=== PATIENT | male | born 1995 | race Asian ===

== ENCOUNTER 2025-04-02 10:16 | Outpatient (REF) | payer OTHER, SELFPAY ==
[2025-04-02 18:10] LABS: MANUAL DIFF FLAG NO
[2025-04-02 18:28] LABS: Hematocrit 49.9 % (42.0-52.0); Hemoglobin 16.5 g/dl (14.0-18.0); Imm Gran Abs Auto 0.03 X10*3/uL (0.00-0.03); Imm Gran Pct Auto 0.3 % (0.0-0.4); Lymphocytes Absolute Auto 4.3 X10*3/uL (1.2-4.9); Mean Corpuscular HGB Conc 33.1 g/dl (31.0-36.0); Mean Corpuscular Hemoglobin 27.9 pg (27.0-33.0); Mean Corpuscular Volume 84.3 fL (80.0-98.0); NRBC Abs Auto 0.000 X10*3/uL (0.0-0.012); NRBC Pct Auto 0.0 /100WBC (0.0-0.2); Platelet Count 354 X10*3/uL (160-400); Red Blood Count 5.92 X10*6/uL (4.60-5.80); White Blood Count 10.8 X10*3/uL (4.8-10.8)
[2025-04-02 18:46] LABS: Appearance Urine Clear; Glucose Urine UA Negative (Negative); PH 5.5 (5.0-9.0); Specific Gravity - Urine 1.025 (1.005-1.025); UMIC TRIGGER UACC YES
[2025-04-02 18:51] LABS: Alanine Aminotransferase 95 U/L (0-40); Albumin Level 4.9 g/dL (3.5-5.0); Alkaline Phosphatase 89 U/L (39-117); Anion Gap 12 (12-20); Aspartate Amino Transferase 45 U/L (5-37); Blood Urea Nitrogen 13 mg/dL (9-16); Calcium 9.5 mg/dL (8.4-10.2); Carbon Dioxide 28 mmol/L (22-29); Chloride 104 mmol/L (96-108); Cholesterol 200 mg/dL (<200); Estimated Glomerular Filt Rate > 60; HDL Cholesterol 35 mg/dL (>40); Magnesium 2.1 mg/dL (1.6-2.6); Potassium 4.2 mmol/L (3.3-5.1); Sodium 140 mmol/L (135-145); Total Protein 8.0 g/dL (6.5-8.0); Triglycerides 248 mg/dL (<150)
[2025-04-02 19:27] LABS: Folate 15.9 ng/mL (> or = 4.0); Vitamin B12 873 pg/mL (200-900)
[2025-04-02 19:49] LABS: Microalbum/Creatinine Ratio Ur 75.8 ug/mg cr (<30)
[2025-04-03 05:07] LABS: Syphilis Screen Nonreactive (Nonreactive)
[2025-04-03 05:21] LABS: HBsAGNum1 0.39 S/CO (0.00-0.99); HIV Num 1 0.07 S/CO (0.00-0.99); Hepatitis B Surface Antigen Negative (Negative); ~HepC Num1 0.12 S/CO (0.00-0.79); ~Hepatitis B Surface Antibody REACTIVE (Nonreactive); ~Hepatitis C Antibody Nonreactive (Nonreactive)
[2025-04-07 15:12] LABS: VITAMIN D (1,25 OH) D3 41 pg/mL; Vit D (1,25-Dihydroxy) Total 41 pg/mL (18-72); Vitamin D (1,25 OH) D2 <8 pg/mL
== END 2025-04-02 10:17 | disposition home or self-care (01) ==
LOC: HO.HKASLDS 10:16
PROVIDERS: PCP Student in an Organized Health Care Education/Training Program; Visit Provider Student in an Organized Health Care Education/Training Program
DX: I10 Essential (primary) hypertension (principal); Z28.82 Immunization not carried out because of caregiver refusal; Z13.9 Encounter for screening, unspecified; E03.9 Hypothyroidism, unspecified; G47.33 Obstructive sleep apnea (adult) (pediatric); E66.811 Obesity, class 1; Z79.890 Hormone replacement therapy; Z79.899 Other long term (current) drug therapy
CPT/HCPCS: 36415; 80053; 80061; 81001; 82043; 82570; 82607; 82652; 82746; 83036; 83735; 84443; 85025; 86706; 86780; 86803; 87340; 87389; 90471

== ENCOUNTER 2025-04-02 10:16 | Outpatient (AMB) | payer OTHER, SELFPAY ==
--- NOTE | 2025-04-02 10:34 | A.OFFPC_ITS ---
Vital Signs 04/02/25 10:36 Height 5 ft 7.91 in Weight 209 lb 2 oz BMI 31.9 BP 135/80 Blood Pressure Location Lt brachial Position Sitting Pulse 86 Pulse Source Pulse Oximeter Temp 97.5 F Temp Source Oral Pulse Oximetry (%) 9 L Intake Visit Reasons: [facility]/ High BP Accompanied by: Self / Same As Patient Allergies No Known Allergies Allergy (Verified 04/02/25 10:35) Medication List - Last Reconciled 04/02/25 by Robi Lewis MD levothyroxine (Levoxyl) 50 mcg PO DAILY losartan 25 mg PO DAILY Tobacco use date assessed: 04/02/25 Dental Screening Dental Screen Date: 04/02/25 Did you have a dental visit in the last 12 months?: No HPI HPI Comments History of Present Illness Details History of Present Illness The patient is a 29 year old individual presenting to establish care with a primary care physician and to undergo a comprehensive evaluation. Hypertension: The patient has a history of hypertension for a couple of years and takes losartan 25 mg. The patient reports a history of weight loss, during which time a previous physician advised that losartan could be taken every other day. However, the patient has since regained weight and was questioning whether to return to daily dosing. Hypothyroidism: The patient was diagnosed with hypothyroidism approximately four years ago, which was not subsequent to a thyroidectomy. The patient takes levothyroxine 50 mcg for this condition and believes a thyroid ultrasound was performed in the past. Obstructive sleep apnea: The patient was diagnosed with sleep apnea about two years ago and was prescribed a CPAP machine. The patient reports being unable to tolerate the CPAP and stopped using it. Current symptoms include snoring, occasional gasping for air at night, and feeling tired on some mornings. Obesity: The patient reports a recent weight gain after previously losing weight, with a current BMI of 31, classified as Class 1 obesity. The patient's exercise regimen consists of weight lifting five days a week but lacks a cardiovascular component. Surgical History: - Left knee surgery for an ACL tear. Medications: - Losartan 25 mg for hypertension. - Levothyroxine 50 mcg for hypothyroidis m. Social History: - Employment: The patient works in [employer]. - Substance Use: The patient drinks alco hol occasionally and denies smoking or illicit drug use. - Exercise: The patient engages in weigh t lifting approximately five days a week but does not perform regular cardiovascular exercise. - Sleep: The patient reports sleeping la te, around 12:00 AM. - Nutrition: The patient declined a refe rral to a data analytics specialist. Family History: - Father: History of heart attack and hy pertension. Diagnostic Results: - Vitals: BMI is 31, corresponding to Cl ass 1 obesity. Past Medical History - Hypothyroidism, diagnosed approximatel y 4 years ago. - Hypertension, diagnosed a couple of ye ars ago. - Obstructive sleep apnea, diagnosed sylvester roximately 2 years ago, with non- adherence to CPAP therapy. - No history of hospitalizations. - No known drug allergies. Health Maintenance - A comprehensive blood panel was ordere d, including CBC, CMP, lipid panel, hemoglobin A1c, thyroid panel, vitamin D, vitamin B12, folate, hepatitis B, hepatitis C, and HIV screening. - Follow-up is scheduled in two weeks to review all lab results and discuss the ongoing management plan. [facility] [place] Medical History (Updated 04/02/25 @ 11:13 by Robi Lewis MD) Class 1 obesity RAQUEL (obstructive sleep apnea) Hypothyroid Hypertension Family History (Updated 04/02/25 @ 10:39 by Grace Walters CMA) Mother No problems noted. Father HTN (hypertension) Heart attack Social History Housing: Apartment Patient Tobacco Use Status: Never used Tobacco service: No Current occupational status: employed Cognitive needs: No Hearing needs: No Vision needs: No Questionnaire PHQ-9 Over the last 2 weeks, how often have you been bothered by any of the following problems? 1. Little interest or pleasure in doing things: not at all 2. Feeling down, depressed, or hopeless: not at all 3. Trouble falling or staying asleep, or sleeping too much: not at all 4. Feeling tired or having little energy: not at all 5. Poor appetite or overeating: not at all 6. Feeling bad about yourself - or that you are a failure or have let yourself or your family down: not at all 7. Trouble concentrating on things, such as reading the newspaper or watching television: not at all 8. Moving or speaking so slowly that other people could have noticed. Or the op posite - being so fidgety or restless that you have been moving around a lot more than usual: not at all 9. Thoughts that you would be better off or of hurting yourself in some way: not at all Total score: 0 Source: Developed by Drs. Wilfredo Rodriguez, Sury Lopez, Juan José Shahid and colleagues, with an educational dana from [employer]. Thrive Questionnaire Date Thrive assessed: 04/02/25 I am a: Patient What is your living situation today?: I have a steady place to live Within the past 12 months, did the food you bought not last and you didn't have the money to get more?: Never true Within the past 12 months, did you worry whether your food would run out before you got money to buy more?: Never true Do you have trouble paying for medicines?: No Do you have trouble getting transportation to medical appointments?: No Do you have trouble paying your heating and electricity bill?: No Do you have trouble taking care of your child, family member or friend?: No Do you have trouble with day-to-day activities such as bathing, preparing meals, shopping, managing finances, etc.?: No Are you currently unemployed and looking for a job?: No Are you interested in more education?: No Please select the resources that you would like help with: None Currently or been in a relationship where the following occur: No concerns reported THRIVE Score: 0 AUDIT C Alcohol Use Questionnaire (AUDIT-C) 1. How often do you have a drink containing alcohol?: Monthly or less 2. How many drinks containing alcohol do you have on a typical day when you are drinking?: 1 or 2 Total Score: 1 SUHAS-7 AMB Questionnaire SUHAS-7 Date SUHAS - 7 assessed: 04/02/25 Feeling nervous, anxious, or on edge: 0 = Not at all Not being able to stop or control worryin = Not at all Worrying too much about different things: 0 = Not at all Trouble relaxin = Not at all Being so restless that it is hard to sit still: 0 = Not at all Becoming easily annoyed or irritable: 0 = Not at all Feeling afraid as if something awful might happen: 0 = Not at all Total SUHAS-7 score (0-4 normal; 5-9 mild; 10-14 moderate; 15-21 severe): 0 Source: Developed by Sury Oropeza, Juan José Shahid and colleagues, with an educational dana from [employer]. Review of Systems Narrative Review of Systems - Constitutional: Reports recent weight gain and feeling tired on some mornings. - HEENT: Reports a sensation of wax buildup in the ears. - Respiratory: Reports snoring and occasionally gasping for air at night. - Sleep: Reports variable sleep quality and sometimes feeling unrested upon waking. 10-point ROS reviewed and negative except as noted in HPI Physical exam (Primary Care) Vital Signs: Last Vital Signs Temp 97.5 F 04/02/25 10:36 Pulse 86 04/02/25 10:36 BP 135/80 04/02/25 10:36 Pulse Ox 9 L 04/02/25 10:36 BMI result Body Mass Index 31.9 Tobacco/Smoking Status: Tobacco use Status Tobacco use date assessed 04/02/25 04/02/25 10:39 Patient Tobacco Use Status Never used Tobacco 04/02/25 10:39 PHQ-9: PHQ-9 Score PHQ-9: Total score 0 04/02/25 10:39 Thrive Assessment: Date of Thrive Assessment Date Thrive assessed 04/02/25 04/02/25 10:39 Currently or been in a relationship where the following occur: No concerns reported Narrative Physical Exam General: Well-appearing, in no acute distress. Vital signs: Within normal limits. HEENT: Normocephalic, atraumatic. PERRLA, EOMI. Conjunctiva clear, sclera anicteric. Oropharynx clear, mucous membranes moist. TMs intact bilaterally. Ears look good, no significant wax buildup noted. Neck: Supple, no lymphadenopathy, no thyromegaly, no JVD or carotid bruits. Cardiovascular: RRR, normal S1/S2, no murmurs, rubs, or gallops. Peripheral pulses 2+ and symmetric. No edema. Respiratory: Lungs clear to auscultation bilaterally, no wheezes, rales, or rhonchi. Normal effort. Abdomen: Soft, non-tender, non-distended. Normoactive bowel sounds. No hepatosplenomegaly, no masses. MSK: Full range of motion, no joint swelling or deformity. Normal gait. History of left knee surgery for ACL tear. Skin: Warm, dry, intact. No rashes, lesions, or pallor. Neuro: Alert and oriented x3. Cranial nerves II-XII intact. Strength 5/5 throughout. Sensation intact. Reflexes 2+ symmetric. Normal coordination and gait. Psych: Appropriate mood and affect. Normal judgment and insight. Office Procedures Flu Questionnaire Does the patient have a severe egg allergy?: No Does the patient have severe life threatening allergies?: No Does the patient have a fever or illness today?: No Has the patient ever had Guillain-[place] Syndrome?: No Has the patient ever had any past reaction to a flu shot?: No Immunizations Fluarix [id number] (PF) 45 mcg (15 mcg x 3)/0.5 mL IM syringe Performing Provider: Robi Lewis MD Performing Location: [facility] Documented (not given) by: Grace Walters CMA on 04/02/25 10:42 Reason Not Given: Patient Refused Coding Level of Care Code New Pt Level 4 (95915) Diagnoses Hypertension I10 Hypothyroid E03.9 RAQUEL (obstructive sleep apnea) G47.33 Class 1 obesity E66.811 Assessment & Plan Assessment & Plan (1) Hypertension: Code(s): I10 - Essential (primary) hypertension Category: Medical (2) Hypothyroid: Code(s): E03.9 - Hypothyroidism, unspecified Category: Medical (3) RAQUEL (obstructive sleep apnea): Code(s): G47.33 - Obstructive sleep apnea (adult) (pediatric) Category: Medical (4) Class 1 obesity: Code(s): E66.811 - Obesity, class 1 Category: Medical Plan Consent The plan for a comprehensive blood panel was discussed with the patient, including a complete blood count, comprehensive metabolic panel, thyroid studie s, vitamin levels, hemoglobin A1c, lipid panel, and infectious disease screening (hepatitis B, hepatitis C, HIV). The patient was informed that the lab work could be done in the clinic today, and verbally agreed to proceed. Patient was informed and verbally consented to the use of an ambient scribe for clinic note documentation during this visit. Plan 1. Hypertension - The patient was instructed to take losartan 25 mg daily, rather than every other day, to ensure consistent blood pressure control and for long-term renal and cardiovascular protection. - A 3-month prescription for losartan 25 mg will be sent to the pharmacy. - A comprehensive metabolic panel and urinalysis for protein will be checked to assess kidney function. - Titration or discontinuation of the medication will be considered in the future if significant weight loss is achieved and blood pressure readings are stable. 2. Hypothyroidism - Continue current dosage of levothyroxine 50 mcg daily. - A 3-month prescription for levothyroxine 50 mcg will be sent to the pharmacy. - A thyroid function test is included in the ordered blood panel to ensure the current dose is therapeutic. 3. Obesity, Class 1 - Counseled on the importance of incorporating cardiovascular exercise for weight loss. - Recommended 30 minutes of moderate-intensity aerobic exercise daily, using the talk test to gauge intensity, in addition to continuing strength training 2-3 times per week with low weight and high repetitions. - A referral to a data analytics specialist was offered, but the patient declined at this time. 4. Obstructive Sleep Apnea - Discussed the significant negative impact of untreated sleep apnea on blood pressure control and weight loss efforts. - Recommended a new home sleep study and a referral to sleep medicine for re-evaluation. - The patient deferred these interventions for now and will provide notification when ready to proceed. Discussion Notes I conducted a comprehensive initial evaluation for this 29-year-old individual establishing care. I explained my recommendation for the patient to take losartan 25 mg daily, as opposed to every other day, to maintain consistent blood pressure control and mitigate long-term risks such as stroke, heart attack, and kidney damage, especially given the family history. We extensively discussed the role of lifestyle in managing the patient's conditions. I provided specific exercise guidance, emphasizing the need to add 30 minutes of daily moderate-intensity cardiovascular exercise for effective weight loss. I also detailed the critical link between untreated sleep apnea and the patient's difficulty with weight loss and hypertension, explaining how poor sleep disrupts metabolism and blood pressure regulation. I recommended a home sleep study and a referral to sleep medicine, but the patient wished to defer this at this time; the patient will inform me when ready to proceed. The patient agreed to the plan for daily medication, comprehensive lab work, and a follow-up visit in two weeks to review the results. Patient Instructions - Take your losartan 25 mg blood pressure medication every day. - Continue taking your levothyroxine 50 mcg thyroid medication every day. - Three-month prescriptions for both medications have been sent to your pharmacy. - Please go to the clinic's lab today to have your blood drawn for the ordered tests. - To help with weight loss, aim for 30 minutes of aerobic exercise every day, such as brisk walking, using a treadmill, or an elliptical machine. - Schedule a follow-up appointment in two weeks to go over your lab results. - Consider our discussion about your sleep. - Please let me know when you are ready to do a home sleep study. - Regarding your ears, you can clean the outside with a wet rag, but do not put Q-tips inside your ear canal. Medical Decision Making The patient is a 29-year-old individual presenting for a comprehensive new patient evaluation with several interconnected health issues including hyperten lesley, hypothyroidism, class 1 obesity, and a history of untreated obstructive sleep apnea. The patient's self-adjusted regimen of taking losartan 25 mg every other day is suboptimal for long-term cardiovascular risk management, particularly given the family history of heart attack and hypertension. My recommendation is to resume daily dosing to ensure stable blood pressure and provide renal protection. The patient's untreated obstructive sleep apnea is a significant concern, as it is a likely contributor to both resistant hypertension and difficulty with weight management. I have counseled the patient on this connection and recommended re-evaluation with a home sleep study, which the patient has deferred for now. The patient's current exercise routine lacks a cardiovascular component, which is a major barrier to weight loss; specific recommendations for aerobic exercise were provided to address this. A comprehensive lab panel has been ordered to assess thyroid function, screen for diabetes and dyslipidemia, evaluate renal and liver function, and check for common infectious diseases as part of this initial workup. The plan is to review these results in two weeks to guide further management of the patient's chronic conditions. Total Time Statement 30 min Total time spent caring for the patient today includes pre-visit chart review, documentation, review of laboratory and diagnostic imaging results, medication reconciliation, medically necessary evaluation, counseling on diagnoses, care coordination, ordering appropriate tests and medications, review of tests performed by other providers, reporting test results to the patient, and communication with other healthcare providers. Orders: Orders Complete Blood Count Auto Diff Today Z13.9 - Encounter for screening, unspecified Hepatitis B Surface Antigen Today Z13.9 - Encounter for screening, unspecified TSH reflex Free T4 Today Z13.9 - Encounter for screening, unspecified UA CC w/rflx Micro + Cult Today Z13.9 - Encounter for screening, unspecified Lipid Panel Today Z13.9 - Encounter for screening, unspecified Hepatitis B Surface Antibody Today Z13.9 - Encounter for screening, unspecified Influenza [id number] Immunization Today Z23 - Encounter for immunization Syphilis Screen Today Z13.9 - Encounter for screening, unspecified Comprehensive Met. Panel Today Z13.9 - Encounter for screening, unspecified Hepatitis C Antibody Today Z13.9 - Encounter for screening, unspecified HIV Ab/Ag Today Z13.9 - Encounter for screening, unspecified Vitamin B12 and Folate Today Z13.9 - Encounter for screening, unspecified Hemoglobin A1c Today Z13.9 - Encounter for screening, unspecified Magnesium Today Z13.9 - Encounter for screening, unspecified Vitamin D 1,25 dihydroxy Today Z13.9 - Encounter for screening, unspecified Microalbumin, Random (w Creat) Today Z13.9 - Encounter for screening, unspecified Medications: New levothyroxine (Levoxyl) 50 mcg PO DAILY 90 tabs 0RF losartan 25 mg PO DAILY 90 tabs 0RF
[2025-04-02 10:36] VITALS: BP 135/80; PULSE 86; TEMP 36.4; O2SAT 9; BMI 31.9
== END 2025-04-02 11:06 | disposition home or self-care (01) ==
LOC: HO.HMCFMS 10:17
PROVIDERS: PCP Student in an Organized Health Care Education/Training Program; Visit Provider Student in an Organized Health Care Education/Training Program
DX: I10 Essential (primary) hypertension (principal); E03.9 Hypothyroidism, unspecified; G47.33 Obstructive sleep apnea (adult) (pediatric); E66.811 Obesity, class 1; Z23 Encounter for immunization